=== PATIENT | female | born 1980 | race Two or more races ===

== ENCOUNTER 2023-07-17 06:08 | Emergency (ER) | payer MEDICAID ==
[~2023-07-17] VITALS: Ht 154.9 cm; Wt 81.8 kg
[2023-07-17 06:36] VITALS: BP 134/87; PULSE 69; RESP 15; TEMP 98.9
[2023-07-17] MEDS: ONDANSETRON ODT 4 MG TAB PO ONE (07:14)
[2023-07-17] MEDS: cefTRIAXone SOD 1,000 MG VL IM ONE (07:16)
[2023-07-17] MEDS: KETOROLAC TROMETH 60MG/2ML VIAL IM ONE (07:16)
[2023-07-17 07:24] VITALS: O2SAT 96
[2023-07-17] MEDS ORDERED: CEPH500C PO (07:55)
[2023-07-17] MEDS ORDERED: ZOFR4T PO (07:55)
[2023-07-17] MEDS ORDERED: IBUP-1454 PO (07:55)
== END 2023-07-17 08:00 | disposition home or self-care (01) ==
LOC: ER 06:08
DX: J03.90 Acute tonsillitis, unspecified (principal); H65.91 Unspecified nonsuppurative otitis media, right ear; Z88.8 Allergy status to other drugs, medicaments and biological substances
CPT/HCPCS: 96372; 99284; J0696; J1885; Q0162